=== PATIENT | male | born 1985 | race Caucasian/White ===

== ENCOUNTER 2018-01-30 14:06 | Emergency (ER) | payer OTHER ==
[~2018-01-30] VITALS: Ht 172.7 cm; Wt 81.7 kg
[2018-01-30 14:40] LABS: ABSOLUTE NEUTROPHILS 8.2 thou/uL (1.4-8.2); BASOPHILS 0.6 % (0.0-2.0); EOSINOPHILS 1.1 % (0.0-3.0); HEMOGLOBIN 16.1 gm/dL (14.0-18.0); LYMPHOCYTES 19.9 % (24.0-44.0); MCH 30.8 pg (26.0-34.0); MCV 87.9 fL (80.0-100.0); MONOCYTES 7.4 % (1.0-8.0); PLATELET COUNT 264 thou/uL (150-400); RBC 5.23 mil/uL (4.50-6.00); RDW 12.7 % (10.5-14.5); WBC 11.5 thou/uL (4.0-11.0)
[2018-01-30 14:50] LABS: POTASSIUM 3.7 mmol/L (3.5-5.1)
[2018-01-30] MEDS ORDERED: IBUPROFEN 600600 M1 PO (17:09)
[2018-01-30] MEDS ORDERED: NORCO 5-325 TA1 EACH PO (17:09)
[2018-01-30] MEDS ORDERED: CLEOCIN HCL150 MG PO (17:09)
[2018-01-30 17:31] VITALS: BP 150/81
== END 2018-01-30 17:32 | disposition home or self-care (01) ==
LOC: ER 14:06
PROVIDERS: Emergency Medicine
DX: L02.11 Cutaneous abscess of neck (principal)